=== PATIENT | male | born 1975 | race Caucasian/White ===

== ENCOUNTER 2023-10-04 05:21 | Emergency (ER) | payer OTHER ==
[2023-10-04 05:25] VITALS: BMI 25.7
[2023-10-04] MEDS ORDERED: DEXAMETHASONE SOD PHOSPHATE 10 MG/1 ML VIAL ONE (05:36)
[2023-10-04] MEDS ORDERED: DEXAMETHASONE 4 MG TABLET (FP) PO ONE (05:36)
[2023-10-04] MEDS ORDERED: IBUPROFEN 100 MG/5 ML UNIT DOSE CUPS PO ONE (05:36)
[2023-10-04] MEDS ORDERED: IBUPROFEN 600 MG TABLET (FP) PO ONE (05:39)
[2023-10-04] MEDS ORDERED: IBUPROFEN 100 MG/5 ML UNIT DOSE CUPS ONE (05:46)
[2023-10-04] MEDS ORDERED: DEXAMETHASONE LIQUID 0.5 MG/5 ML PO ONE (06:13)
[2023-10-04] MEDS ORDERED: ACETAMINOPHEN 1000 MG/100 ML BAG IVPB ONE (06:17)
[2023-10-04 07:22] LABS: BASO % 0.3 % (0-2.0); EOS % 0.3 % (0-4.5); HEMATOCRIT 46.8 % (35.4-49); HEMOGLOBIN 15.6 GM/dL (11.7-16.9); LYMPH % 5.3 % (8-40); MCH 29.4 pg (25.7-33.7); MCHC 33.4 g/dl (32.0-35.9); MEAN PLT VOLUME 7.8 fl (7.5-11.1); MONO % 6.7 % (3.8-10.2); NEUT % 87.4 % (42.8-82.8); PLATELET COUNT 365 10^3/uL (134-434); RBC 5.32 M/mm3 (4.00-5.60); RDW 12.7 % (11.9-15.9); WHITE BLOOD COUNT 15.7 K/mm3 (4.0-10.0)
[2023-10-04] MEDS ORDERED: ACETAMINOPHEN INJECTION 100 ML IVPB ONE (07:23)
[2023-10-04 07:32] LABS: POTASSIUM 3.1 mmol/L (3.5-5.1)
[2023-10-04 07:33] LABS: BLOOD UREA NITROGEN 11.4 mg/dL (7-18); CALCIUM 9.1 mg/dL (8.5-10.1)
[2023-10-04 07:34] LABS: ALBUMIN 3.8 g/dl (3.4-5.0)
[2023-10-04 07:37] LABS: CREATININE 0.8 mg/dL (0.55-1.3)
[2023-10-04 07:38] LABS: BILIRUBIN,TOTAL 1.5 mg/dL (0.2-1); TOT PROT 7.8 g/dl (6.4-8.2)
[2023-10-04] MEDS ORDERED: POTASSIUM CHLORIDE TABS 20 MEQ TABLET.ER (FP) PO ONE ×2 (07:51→08:15)
[2023-10-04] MEDS ORDERED: MAGNESIUM SULFATE IN WATER 2 GM/50 ML IVPB IVPB ONE (09:00)
[2023-10-04] MEDS ORDERED: AMPICILLIN NA/SULBACTAM NA 3 GM in SODIUM CHLORIDE 100 ML IVPB ONE (11:46)
[2023-10-04] MEDS ORDERED: AMPICILLIN NA/SULBACTAM NA 3 GM VIAL ONE (12:16)
[2023-10-04 12:57] VITALS: BP 121/78; PULSE 71; TEMP 98.2
[2023-10-04 12:58] VITALS: RESP 15
== END 2023-10-04 12:50 | disposition short-term general hospital (02) ==
LOC: JER 05:21
PROC: 3E03329 Introduction of Other Anti-infective into Peripheral Vein, Percutaneous Approach (ICD-10-PCS; principal; 2023-10-04)
PROC: 3E033NZ Introduction of Analgesics, Hypnotics, Sedatives into Peripheral Vein, Percutaneous Approach (ICD-10-PCS; 2023-10-04)
DX: R06.02 Shortness of breath (principal); R09.89 Other specified symptoms and signs involving the circulatory and respiratory systems; J02.0 Streptococcal pharyngitis; J39.0 Retropharyngeal and parapharyngeal abscess; Z20.822 Contact with and (suspected) exposure to COVID-19
CPT/HCPCS: 0241U-QW; 36415; 70360-TC-FY; 70490-TC; 70491-TC; 80053; 85025; 87040; 87651; 96365; 96375; 99285-25; Q9967

== ENCOUNTER 2025-07-28 12:28 | Inpatient (IN) | payer OTHER ==
[2025-07-28 12:59] VITALS: BMI 22.8
[2025-07-28] MEDS ORDERED: NALOXONE (NARCAN) HCL 4 MG/0.1 ML SPRAY NS PRN (13:45)
[2025-07-28] MEDS ORDERED: LOPERAMIDE HCL 2 MG CAPSULE PO PRN (13:45)
[2025-07-28] MEDS ORDERED: ACETAMINOPHEN 325 MG TABLET (FP) PO PRN (13:45)
[2025-07-28] MEDS ORDERED: guaiFENesin 600 MG TABLET.ER (FP) PO PRN (13:45)
[2025-07-28] MEDS ORDERED: POLYETHYLENE GLYCOL (HEALTHYLAX) 3350 17 GM PACKET PO PRN (13:45)
[2025-07-28] MEDS ORDERED: MAG HYDROX/AL HYDROX/SIMETH 30 ML UNIT-DOSE CUP PO PRN (13:45)
[2025-07-28] MEDS ORDERED: BISMUTH SUBSALICYLATE 524 MG/30 ML PO PRN (13:45)
[2025-07-28] MEDS ORDERED: MAGNESIUM HYDROX 2400MG/30ML ORAL SUSPENSION 30 ML CUP PO PRN (13:45)
[2025-07-28] MEDS ORDERED: BENZONATATE 200 MG CAPSULE PO PRN (13:45)
[2025-07-28] MEDS ORDERED: ONDANSETRON *ODT* 4 MG TABLET SL PRN (13:45)
[2025-07-28] MEDS ORDERED: METHOCARBAMOL 500 MG TABLET PO PRN (13:45)
[2025-07-28] MEDS ORDERED: BENZOCAINE/MENTHOL (CHLORASEPTIC ) LOZENGE MM PRN (13:45)
[2025-07-28] MEDS ORDERED: IBUPROFEN 400 MG TABLET (FP) PO PRN (13:45)
[2025-07-28] MEDS ORDERED: IBUPROFEN 600 MG TABLET (FP) PO PRN (13:45)
[2025-07-28] MEDS ORDERED: DICYCLOMINE HCL 10 MG CAPSULE PO PRN (13:45)
[2025-07-28] MEDS: PRENATAL VITAMINS W/ FOLIC ACID TABLET (FP) PO SCH (16:07)
[2025-07-28] MEDS ORDERED: NALTREXONE HCL 50 MG TABLET PO ONE (16:57)
[2025-07-28] MEDS: NALTREXONE HCL 50 MG TABLET PO ONE (17:39)
[2025-07-28] MEDS: hydrOXYzine PAMOATE 25 MG CAPSULE (FP) PO PRN (17:41)
[2025-07-28] MEDS: THIAMINE 100 MG TABLET PO SCH (22:01)
[2025-07-28] MEDS: MELATONIN 5 MG TABLETS PO SCH (22:01)
[2025-07-29 09:25] VITALS: RESP 17
[2025-07-29] MEDS: NALTREXONE HCL 50 MG TABLET PO SCH (10:20)
[2025-07-29 10:31] LABS: MCHC 32.0 g/dl (32.3-36.5); MEAN CELL VOLUME 90.8 fl (79.0-92.2); MEAN PLT VOLUME 10.1 fl (9.4-12.4); RDW 13.2 % (12.1-15.9)
[2025-07-29 10:54] LABS: GLUCOSE,RANDOM 100 mg/dL (74-106); TOT PROT 6.9 g/dl (6.4-8.2)
[2025-07-29 10:55] LABS: CO2 27 mmol/L (21-32)
[2025-07-29 10:59] LABS: SGOT/AST 23 U/L (5-34); SGPT/ALT 22 U/L (0-55)
[2025-07-29 11:00] LABS: CREATININE 0.92 mg/dL (0.55-1.3)
[2025-07-29 11:20] LABS: ALK PHOS 77 U/L (40-150)
[2025-07-29 13:27] VITALS: BP 133/90; PULSE 64; TEMP 97.8
== END 2025-07-29 15:13 | disposition home or self-care (01) | DRG 774 ==
LOC: YASAS 12:28 → Y6N 16:24
PROVIDERS: ADMIT Allergy & Immunology; ATTEND Allergy & Immunology
PROC: HZ2ZZZZ Detoxification Services for Substance Abuse Treatment (ICD-10-PCS; principal; 2025-07-28)
DX: F10.20 Alcohol dependence, uncomplicated (principal); F14.20 Cocaine dependence, uncomplicated; I10 Essential (primary) hypertension
CPT/HCPCS: 36415; 80053; 80307; 85027; 86780; 93005; 93010